=== PATIENT | female | born 1975 | race Caucasian/White ===

== ENCOUNTER 2019-05-08 15:09 | Emergency (ER) | payer MEDICARE, MEDICAID ==
[2019-05-08 15:48] VITALS: BP 96/61
--- NOTE | 2019-05-08 15:58 | UC ---
Throat Pain/Nasal Paulino HPI - HPI Summary HPI Summary: Pt states she saw her primary MD on Friday and was mucinex for nasal congestion. Pt states since then she has been feeling worse. She is coughing, throwing up, ears are hurting. Pt states she needs a note to go back to work. - History of Current Complaint Chief Complaint: UCGeneralIllness Stated Complaint: COUGH Time Seen by Provider: 05/08/19 15:56 Hx Obtained From: Patient Hx Last Menstrual Period: 05/02/19 ?: Yes Onset/Duration: Gradual Onset, Lasting Weeks Severity: Mild Pain Intensity: 0 Associated Signs & Symptoms: Positive: Dysphagia - Allergies/Home Medications Allergies/Adverse Reactions: Allergies Allergy/AdvReac Type Severity Reaction Status Date / Time codeine Allergy Hives Verified 05/08/19 15:50 Penicillins Allergy Hives Verified 05/08/19 15:50 Home Medications: Home Medications Anxiety Medication 05/08/19 [History] QUEtiapine TAB* [Seroquel 100 MG *] 100 mg PO BEDTIME 05/08/19 [History Confirmed 05/08/19] PMH/Surg Hx/FS Hx/Imm Hx Previously Healthy: Yes - Surgical History Surgical History: Yes Surgery Procedure, Year, and Place: tubaligation - Family History Known Family History: Negative: Hypertension - Social History Alcohol Use: None Substance Use Type: None Smoking Status (MU): Heavy Every Day Tobacco Smoker Household Exposure Type: Cigarettes Review of Systems All Other Systems Reviewed And Are Negative: Yes ENT: Positive: Sore Throat, Ear Ache, Nasal Discharge, Sinus Congestion Respiratory: Positive: Cough Gastrointestinal: Positive: Vomiting Is Patient Immunocompromised?: No Physical Exam Triage Information Reviewed: Yes Appearance: Well-Appearing, Well-Nourished, Pain Distress Vital Signs: Initial Vital Signs Temp 98.3 F 05/08/19 15:43 Pulse 77 05/08/19 15:43 Resp 16 05/08/19 15:43 BP 96/61 05/08/19 15:43 Pulse Ox 99 05/08/19 15:43 Vital Signs Reviewed: Yes Eye Exam: Normal ENT: Positive: Pharyngeal erythema - with PND, Nasal congestion, TM bulging - bilateral, Sinus tenderness Dental Exam: Normal Neck exam: Normal Neck: Positive: Supple, Nontender, No Lymphadenopathy Respiratory Exam: Normal Respiratory: Positive: Chest non-tender, Lungs clear, Normal breath sounds Cardiovascular Exam: Normal Cardiovascular: Positive: RRR, No Murmur, Pulses Normal Abdominal Exam: Normal Bowel Sounds: Positive: Present Musculoskeletal Exam: Normal Neurological Exam: Normal Psychological Exam: Normal Skin Exam: Normal Throat Pain/Nasal Course/Dx - Course Course Of Treatment: hx obtained exam performed ,meds reviewed, treaed for sinusitis - Differential Dx/Diagnosis Differential Diagnosis/HQI/PQRI: Otitis Media, Pharyngitis, Sinusitis, URI Provider Diagnosis: Sinusitis Discharge ED - Sign-Out/Discharge Documenting (check all that apply): Patient Departure All imaging exams completed and their final reports reviewed: No Studies - Discharge Plan Condition: Stable Disposition: HOME Prescriptions: Cephalexin CAP* [Keflex CAP*] 500 mg PO BID #20 cap Patient Education Materials: Sinusitis (ED) Forms: *Work Release Referrals: Annelise Rosales NP [Primary Care Provider] - Additional Instructions: 1. take the medication as prescribed. 2. Increase fluids and get plenty of rest. 3. Take a daily claritin to help with the ears and mucus producion 4. Salt water gargles daily - Billing Disposition and Condition Condition: STABLE Disposition: Home
== END 2019-05-08 16:27 | disposition home or self-care (01) ==
LOC: UCCORT 15:09
DX: J32.9 Chronic sinusitis, unspecified (principal); Z88.0 Allergy status to penicillin; F17.210 Nicotine dependence, cigarettes, uncomplicated
CPT/HCPCS: 99202; G0463

== ENCOUNTER 2019-06-14 14:43 | Emergency (ER) | payer MEDICARE, MEDICAID ==
--- OUTSIDE RECORDS SUMMARY | 2019-06-14 14:51 | XMS REPORT | Continuity of Care Document ---
:1975 External Reference #:[id number] Author Name Annelise Rosales PNP-BC, MEDICAL SERVICE TECHNICIAN, [facility] Address [address] [place] [address] Care Team Providers Name Role Phone Annelise Rosales PNP-BC, MEDICAL SERVICE TECHNICIAN, [facility] Care Team Information Trommel Tender - Family Allan Rosas MD - Gastroenterology Care Team Information Trommel Tender [phone] Problems Active Problems Provider Date Bipolar disorder Annelise Rosales PNP-BC, MEDICAL SERVICE TECHNICIAN, [facility] Onset: 01/13/2018 Anxiety state Annelise Rosales PNP-BC, MEDICAL SERVICE TECHNICIAN, [facility] Onset: 01/13/2018 Social History Type Date Description Comments Sex Unknown Cigarette Use Pack Years - 54 Smokeless Tobacco Never Used Smokeless Tobacco ETOH Use Negative For Denies alcohol use Tobacco Use Start: Unknown Light tobacco smoker (10 or fewer cigarettes/day) Recreational Drug Use Never Used Drugs Smoking Status Reviewed: 05/04/19 Light tobacco smoker (10 or fewer cigarettes/day) Allergies, Adverse Reactions, Alerts Active Allergies Reaction Severity Comments Date Penicillins 07/14/2017 Codeine vomitting 03/12/2018 Medications Active Medications SIG Qnty Indications Ordering Date Provider Mucinex 1 tab by mouth 30tabs J06.9 Annelise Rosales, 05/04/2019 600mg Tablets twice a day as PNP-BC, MEDICAL SERVICE TECHNICIAN, ER 12HR needed for [facility] congestion Paroxetine HCL Take One Tablet By 30tabs Annelise Rosales, 02/28/2019 20mg Mouth Every Day PNP-BC, MEDICAL SERVICE TECHNICIAN, Tablets [facility] Quetiapine Fumarate take 1-2 at bedtime 60tabs F31.9 Annelise Rosales, 2018 PNP-BC, MEDICAL SERVICE TECHNICIAN, 50mg Tablets [facility] Immunizations CPT Code Status Date Vaccine Lot # [id number] Given 07/14/2017 Pneumovax Injection [id number] Given 07/14/2017 Tdap injection [id number] Refused 07/14/2017 Influenza Vaccine, Inactivated, Subunit, Adjuvanted , For Intrmusc Vital Signs Date Vital Result Comment 05/04/2019 4:23pm BP Systolic 110 mmHg BP Diastolic 60 mmHg Heart Rate 91 /min Respiratory Rate 18 /min Height 62 inches 5'2" Weight 175.00 lb BMI (Body Mass Index) 32.0 kg/m2 BSA (Body Surface Area) 1.81 m2 [place] body weight in kilograms 50 kg 10/29/2018 1:38pm BP Systolic 126 mmHg BP Diastolic 74 mmHg Body Temperature 98.9 F Heart Rate 70 /min Respiratory Rate 18 /min Height 62 inches 5'2" Weight 165.00 lb BMI (Body Mass Index) 30.2 kg/m2 BSA (Body Surface Area) 1.76 m2 [place] body weight in kilograms 50 kg O2 % BldC Oximetry 98 % Results Description No Information Available Procedures Description No Information Available Medical Devices Description No Information Available Encounters Type Date Location Provider Dx Diagnosis Office Visit 05/04/2019 [facility] Annelise Rosales, F41.9 Anxiety disorder, 4:15p [facility], MEDICAL SERVICE TECHNICIAN, unspecified [facility] G47.00 Insomnia, unspecified J06.9 Acute upper respiratory infection, unspecified Assessments Date Code Description Provider 05/04/2019 F41.9 Anxiety disorder, unspecified Annelise Rosales PNP-BC, MEDICAL SERVICE TECHNICIAN, [facility] 05/04/2019 G47.00 Insomnia, unspecified Annelise Rosales PNP-BC, MEDICAL SERVICE TECHNICIAN, [facility] 05/04/2019 J06.9 Acute upper respiratory infection, Annelise Rosales PNP-BC, MEDICAL SERVICE TECHNICIAN, unspecified [facility] Plan of Treatment Future Appointment(s):01/19/2020 11:00 am - Annelise Rosales PNP-BC, MEDICAL SERVICE TECHNICIAN, [facility] at [facility]05/04/2019 - Annelise Rosales PNP-BC, MEDICAL SERVICE TECHNICIAN, UnqesQ24.9 Anxiety disorder, unspecifiedComments:stableFollow up:PE in spring.G47.00 Insomnia, unspecifiedComments:I'm glad things are better with your bbezcD16.9 Acute upper respiratory infection, unspecifiedNew Medication:Mucinex 600 mg - 1 tab by mouth twice a day as needed for congestionComments:saline nasal spray 3- 4 times a daylots of fluids.sudefedif not improved by next week/end of the weekor you start running a fever let me know. Functional Status Description No Information Available Mental Status Description No Information Available Referrals Description No Information Available
[2019-06-14 16:06] VITALS: BP 108/70
--- NOTE | 2019-06-14 16:44 | UC ---
Nausea/Vomiting/Diarrhea HPI - HPI Summary HPI Summary: Patient is a 43yo female presenting with nausea and vomiting x2 days. States it began Friday night several hours after consuming a chicken sandwich from [employer]. Patient notes one episode of emesis friday night, once yesterday morning, and once this morning. Notes constant nausea. Notes lightheadedness today at work. Notes decreased appetite but states she is still able to drink water and keep it down. Denies hematemesis. Denies diarrhea. Denies abdominal pain. Denies GI history. - History of Current Complaint Chief Complaint: UCGI Stated Complaint: VOMITTING X3 DAYS, CHILLS, LIGHTHEADED Hx Obtained From: Patient Hx Last Menstrual Period: 06/07/19 Onset/Duration: Sudden Onset, Lasting Days Pain Intensity: 8 - Allergies/Home Medications Allergies/Adverse Reactions: Allergies Allergy/AdvReac Type Severity Reaction Status Date / Time codeine Allergy Hives Verified 06/14/19 15:58 Penicillins Allergy Hives Verified 06/14/19 15:58 Home Medications: Home Medications Fluoxetine HCl [Prozac] 20 mg PO DAILY 06/14/19 [History Confirmed 06/14/19] PMH/Surg Hx/FS Hx/Imm Hx Previously Healthy: Yes Psychological History: Bipolar Disorder - Surgical History Surgical History: Yes Surgery Procedure, Year, and Place: tubaligation - Family History Known Family History: Negative: Hypertension - Social History Alcohol Use: None Substance Use Type: None Smoking Status (MU): Heavy Every Day Tobacco Smoker Type: Cigarettes Amount Used/How Often: 1.5 per day Length of Time of Smoking/Using Tobacco: 27 yrs Household Exposure Type: Cigarettes Review of Systems All Other Systems Reviewed And Are Negative: Yes Constitutional: Positive: Negative. Negative: Fever, Chills Respiratory: Positive: Negative Cardiovascular: Positive: Negative Musculoskeletal: Positive: Negative Neurological: Positive: Headache Physical Exam Triage Information Reviewed: Yes Appearance: Well-Appearing, No Pain Distress, Well-Nourished Vital Signs: Initial Vital Signs Temp 98.9 F 06/14/19 16:00 Pulse 72 06/14/19 16:00 Resp 16 06/14/19 16:00 BP 108/70 06/14/19 16:00 Pulse Ox 100 06/14/19 16:00 Lab Results 06/14/19 Range/Units 16:44 POC Urine Color Yellow POC Urine Clarity Clear POC Urine pH 5.5 (5-9) POC Ur Specif Mertens 1.010 (1.010-1.030) POC Urine Protein Negative (Negative) POC Ur Glucose (UA) Negative (Negative) POC Urine Ketones Negative (Negative) POC Urine Blood Negative (Negative) POC Urine Nitrite Negative (Negative) POC Urine Bilirubin Negative (Negative) POC Urine Urobilinogen 0.2 (Negative) POC U Leukocyte Esteras Negative (Negative) Vital Signs Reviewed: Yes Eyes: Positive: Conjunctiva Clear ENT: Positive: Hearing grossly normal, Pharynx normal, Other Neck: Positive: Supple Respiratory Exam: Normal Respiratory: Positive: Lungs clear, Normal breath sounds, No respiratory distress Cardiovascular Exam: Normal Cardiovascular: Positive: RRR Abdominal Exam: Normal Abdomen Description: Positive: Nontender, Soft. Negative: CVA Tenderness (R), CVA Tenderness (L), Distended, Guarding, McBurney's Point Tenderness Bowel Sounds: Positive: Present Neurological: Positive: Alert Psychological: Positive: Other: - flat affect Skin Exam: Normal Naus/Vom/Diarrhea Course/Dx - Course Course Of Treatment: Patient UA and VS normal. No sign of dehydration. No pain distress. Instructed patient to maintain hydration and continue with symptomatic treatment and bland diet. Instructed to follow up with PCP if symptoms persist past 2 days. Instructed to go to the ED if symptoms worsen or she is unable to keep fluids down. Patient voiced understanding and agreed with the treatment plan. - Differential Dx/Diagnosis Provider Diagnosis: Nausea and vomiting Condition At Discharge: Stable Discharge ED - Sign-Out/Discharge Documenting (check all that apply): Patient Departure All imaging exams completed and their final reports reviewed: No Studies - Discharge Plan Condition: Stable Disposition: HOME Patient Education Materials: Acute Nausea and Vomiting (ED), Food Poisoning (ED ) Forms: *Work Release Referrals: Annelise Rosales NP [Primary Care Provider] - If Needed Additional Instructions: As discussed, your nausea and vomiting should resolve within the next day or two. Get plenty of rest and drink plenty of fluids. Eat a bland diet, such as bread, bananas, and rice while symptoms are present. Follow-up with your PCP if your symptoms do not resolve. Go to the emergency room if you develop fever, excessive vomiting, abdominal or chest pain, or are unable to keep fluids down. - Billing Disposition and Condition Condition: STABLE Disposition: Home
== END 2019-06-14 17:12 | disposition home or self-care (01) ==
LOC: UCCORT 14:43
DX: R11.2 Nausea with vomiting, unspecified (principal); F17.210 Nicotine dependence, cigarettes, uncomplicated; F31.9 Bipolar disorder, unspecified; Z88.5 Allergy status to narcotic agent; Z88.0 Allergy status to penicillin; Z79.899 Other long term (current) drug therapy
CPT/HCPCS: 81003; 99211; G0463

== ENCOUNTER 2019-08-06 08:34 | Emergency (ER) | payer MEDICARE, MEDICAID ==
--- NOTE | 2019-08-06 08:53 | UC ---
General HPI - HPI Summary HPI Summary: 43 yo female c/o cough x approx 3 weeks, now with progressive pain bilat lower chest wall, hurts to take deep breath and cough. Cough min productive. No fever /chills. Hx wheezing, does not have albuterol, does have a nebulizer. No rash. No palpitations. No sob perse except with cough. No GI issues. Some sinus congestion. - History of Current Complaint Stated Complaint: RIB PAIN,COUGH Time Seen by Provider: 08/06/19 08:53 Hx Obtained From: Patient Hx Last Menstrual Period: 06/07/19 - Allergy/Home Medications Allergies/Adverse Reactions: Allergies Allergy/AdvReac Type Severity Reaction Status Date / Time codeine Allergy Hives Verified 08/06/19 08:57 Penicillins Allergy Hives Verified 08/06/19 08:57 Home Medications: Home Medications Aspirin/Caffeine [Tammie Back & Body Pain Ex] 2 tab PO BID PRN 08/06/19 [History Confirmed 08/06/19] PMH/Surg Hx/FS Hx/Imm Hx Previously Healthy: Yes - see hpi - Surgical History Surgical History: Yes Surgery Procedure, Year, and Place: tubaligation - Family History Known Family History: Negative: Hypertension - Social History Alcohol Use: None Substance Use Type: None Smoking Status (MU): Heavy Every Day Tobacco Smoker Type: Cigarettes Amount Used/How Often: 1.5 per day Length of Time of Smoking/Using Tobacco: 27 yrs Household Exposure Type: Cigarettes Review of Systems All Other Systems Reviewed And Are Negative: Yes Constitutional: Positive: Negative Skin: Positive: Negative Eyes: Positive: Negative ENT: Positive: Other - see hpi Respiratory: Positive: Cough - see hpi Cardiovascular: Positive: Other - see hpi Gastrointestinal: Positive: Negative Genitourinary: Positive: Negative Motor: Positive: Other - see hpi Neurovascular: Positive: Negative Musculoskeletal: Positive: Negative Neurological: Positive: Negative Psychological: Positive: Negative Is Patient Immunocompromised?: No Physical Exam Triage Information Reviewed: Yes Appearance: Well-Nourished - sitting up, stands ok - uncomfortable with movement and deep breath but NAD Vital Signs Reviewed: Yes Eye Exam: Normal ENT: Positive: Pharyngeal erythema - mild post redness, c/w cough, TM dull Neck exam: Normal Neck: Positive: Supple, Nontender, No Lymphadenopathy Respiratory Exam: Other - + exp wheeze R>L migel mid upper lobe Tender mid lower lat rib areas. No crepitus. No specific point bony tenderness Respiratory: Positive: No respiratory distress, No accessory muscle use Course/Dx - Course Course Of Treatment: Xrays nad, see meditech report. E-rx albuterol neb and inh E-script naproxen Declines work note. Reviewed coa / tx plan. Questions answered as posed to the best of my ability. - Diagnoses Provider Diagnosis: Costochondritis, acute, Wheezing Discharge ED - Sign-Out/Discharge Documenting (check all that apply): Patient Departure All imaging exams completed and their final reports reviewed: Yes - Discharge Plan Condition: Stable Disposition: HOME Prescriptions: Albuterol 2.5MG/3ML (0.083%)* [Ventolin 2.5 MG/3 ML NEB.COY*] 2.5 mg INH Q8H PRN #25 vial PRN Reason: Wheezing Albuterol HFA INHALER* [Ventolin HFA Inhaler*] 1 - 2 puff INH Q4H PRN #1 mdi PRN Reason: Wheezing Naproxen TAB* [Naprosyn 250 mg TAB*] 500 mg PO Q12H PRN #30 tab PRN Reason: Pain - Moderate Patient Education Materials: Costochondritis (ED), Wheezing (ED) Referrals: Annelise Rosales NP [Primary Care Provider] - Additional Instructions: Do not take Tammie aspirin while taking naproxen (prescription). Follow up with your primary care physician for recheck, if possible next week. Please seek medical attention for worse or new problems. Hydrate. - Billing Disposition and Condition Condition: STABLE Disposition: Home
[2019-08-06 08:57] VITALS: BP 104/69
== END 2019-08-06 10:31 | disposition home or self-care (01) ==
LOC: UCCORT 08:34
DX: M94.0 Chondrocostal junction syndrome [Tietze] (principal); R06.2 Wheezing; F17.210 Nicotine dependence, cigarettes, uncomplicated; Z88.0 Allergy status to penicillin; Z88.5 Allergy status to narcotic agent
CPT/HCPCS: 71046; 71110; 99212; G0463

== ENCOUNTER 2019-08-08 11:08 | Emergency (ER) | payer MEDICARE, MEDICAID ==
[2019-08-08 13:15] VITALS: BP 104/62
--- NOTE | 2019-08-08 13:42 | UC ---
Respiratory Complaint HPI - HPI Summary HPI Summary: 43-year-old female presents for persistent chest wall pain. Patient was seen at this facility on 08/06/2019 with reports of a three-week history of cough and chest wall pain with coughing and wheezing. She had negative chest x-ray and rib films at that time. She was diagnosed with costochondritis and recommended conservative treatment including naproxen 500 mg twice a day and albuterol inhaler. States she has taken the naproxen with no improvement in pain. Last dose was yesterday evening. Her cough and wheezing has improved with use of the albuterol inhaler. Patient states that yesterday she slipped on the ice and fell onto her back. States this has aggravated her chest wall pain to the point where she hurts with any type of movement and feels that she is unable to work at this time. Patient is a heavy smoker. Denies fever, chills , palpitations, weakness, dizziness, diaphoresis, nausea, vomiting, calf pain or swelling, weakness, numbness, or tingling of lower extremities, or loss of bowel or bladder control. - History of Current Complaint Chief Complaint: UCTrauma Stated Complaint: COUGH,SORE RIBS Hx Obtained From: Patient Hx Last Menstrual Period: Aug 02 Pain Intensity: 10 - Allergies/Home Medications Allergies/Adverse Reactions: Allergies Allergy/AdvReac Type Severity Reaction Status Date / Time codeine Allergy Hives Verified 08/08/19 13:15 Penicillins Allergy Hives Verified 08/08/19 13:15 PMH/Surg Hx/FS Hx/Imm Hx Psychological History: Depression - Surgical History Surgical History: Yes Surgery Procedure, Year, and Place: tubaligation - Family History Known Family History: Negative: Cardiac Disease, Hypertension, Respiratory Disease - Social History Occupation: Employed Full-time Lives: With Family Alcohol Use: Rare Substance Use Type: None Smoking Status (MU): Heavy Every Day Tobacco Smoker Type: Cigarettes Amount Used/How Often: 1.5 per day Length of Time of Smoking/Using Tobacco: 27 yrs Household Exposure Type: Cigarettes Review of Systems All Other Systems Reviewed And Are Negative: Yes Constitutional: Negative: Fever, Chills Skin: Negative: Rash Eyes: Negative: Drainage, Eye Redness ENT: Negative: Sore Throat, Ear Ache, Nasal Discharge, Sinus Congestion, Sinus Pain/Tenderness Respiratory: Positive: Cough. Negative: Shortness Of Breath Cardiovascular: Positive: Other - See HPI. Negative: Palpitations Gastrointestinal: Negative: Abdominal Pain, Vomiting, Nausea Genitourinary: Positive: Negative Musculoskeletal: Positive: Negative Neurological: Positive: Negative Is Patient Immunocompromised?: No Physical Exam - Summary Physical Exam Summary: GENERAL APPEARANCE: Alert and cooperative obese female who appears to be in no acute distress. EYES: Conjunctiva clear. No drainage. EARS: External auditory canals and tympanic membranes clear, hearing grossly intact. NOSE: No nasal discharge. THROAT: Pharynx normal. No tonsilar inflammation, swelling, exudate, or lesions. Uvula midline. NECK: Neck supple, non-tender without lymphadenopathy. CARDIAC: Normal S1 and S2. No S3, S4 or murmurs. Rhythm is regular. There is no peripheral edema, cyanosis or pallor. Extremities are warm and well perfused. Capillary refill is less than 2 seconds. Peripheral pulses intact. LUNGS: Patient reported severe tenderness with palplation to the entirety of her anterior and posterior thorax. Clear to auscultation without rales, rhonchi , wheezing or diminished breath sounds. ABDOMEN: Positive bowel sounds. Soft, nondistended, nontender. No guarding or rebound. No masses or hepatosplenomegally. MUSKULOSKELETAL: ROM intact to all extremities. No joint erythema or tenderness. Normal muscular development. Normal gait. SKIN: Skin normal color, texture and turgor with no lesions or eruptions. Triage Information Reviewed: Yes Vital Signs: Initial Vital Signs Temp 99.5 F 08/08/19 13:07 Pulse 90 08/08/19 13:07 Resp 16 08/08/19 13:07 BP 104/62 08/08/19 13:07 Pulse Ox 98 08/08/19 13:07 Vital Signs Reviewed: Yes Diagnostics - Radiology No standard instances Radiology Interpretation Completed By: Radiologist Summary of Radiographic Findings: Order Information: RIBS BI W/PA CHEST MIN 4 VWS. HISTORY: worsening chest wall pain, hx fall. COMPARISONS: August 06, 2019 VIEWS: 9, Frontal and oblique views of the left and right hemithorax. FINDINGS: There is no displaced rib fracture or pneumothorax. The visualized lungs are clear. IMPRESSION: NO DISPLACED RIB FRACTURE OR PNEUMOTHORAX. Respiratory Course/Dx - Course Course Of Treatment: 43-year-old female presents for persistent chest wall pain. Patient was seen at this facility on 08/06/2019 with reports of a three-week history of cough and chest wall pain with coughing and wheezing. She had negative chest x-ray and rib films at that time. She was diagnosed with costochondritis and recommended conservative treatment including naproxen 500 mg twice a day and albuterol inhaler. States she has taken the naproxen with no improvement in pain. Last dose was yesterday evening. Her cough and wheezing has improved with use of the albuterol inhaler. Patient states that yesterday she slipped on the ice and fell onto her back. States this has aggravated her chest wall pain to the point where she hurts with any type of movement and feels that she is unable to work at this time. Patient is a heavy smoker. Denies fever, chills , palpitations, weakness, dizziness, diaphoresis, nausea, vomiting, calf pain or swelling, weakness, numbness, or tingling of lower extremities, or loss of bowel or bladder control. Afebrile. Vital signs stable. Patient reported severe pain with even light touch to her bilateral anterior and posterior chest wall. She is in no respiratory distress and had clear bilateral breath sounds. Remainder of exam was unremarkable. Her Wells score for PE is zero which places her at low risk. Chest x-ray and bilateral rib films were unchanged from previous films and showed no acute fracture, pneumothorax, or acute cardiopulmonary pathology. Reviewed results with patient and discussed that her pain is likely musculoskeletal in origin although I cannot fully exclude other causes including PE despite her low risk. Recommending continued use of naproxen with supplementation with acetaminophen 1000 mg Q8h. Will provider with a short term prescription of cyclobenzaprine 10 mg Q8h as needed for severe pain or spasm as well as cold/heat therapy. She is to follow up with her PCP within 7 days for further evaluation. Anticipatory guidelines and warning symptoms requiring immediate medical attention in the ED were reviewed with the patient. Verbalizes understanding and agrees with POC. - Differential Dx/Diagnosis Differential Diagnosis/HQI/PQRI: Bronchitis, Lower Resp Infection, Pneumothorax , Other - chest wall pain, CAD, PE Provider Diagnosis: Chest wall pain Discharge ED - Sign-Out/Discharge Documenting (check all that apply): Patient Departure All imaging exams completed and their final reports reviewed: Yes - Discharge Plan Condition: Stable Disposition: HOME Prescriptions: Cyclobenzaprine HCl 10 mg PO Q8HR PRN #15 tablet PRN Reason: Spasms Patient Education Materials: Chest Wall Pain (ED) Forms: *Work Release Referrals: Annelise Rosales NP [Primary Care Provider] - 7 Days (Follow up within 7 days for recheck of symptoms.) Additional Instructions: The chest and rib x-rays performed in the clinic today were normal. Rest as much as possible. Apply ice, heat, or try alternating ice then heat to the affected area for 15- 20 minutes at least 4 times a day to help with the pain. Continue taking the naproxen 1 tab every 12 hours with food as needed for pain. You may supplement this with acetaminophen (Tylenol) 1000 mg every 8 hours as needed for pain. Take cyclobenzaprine 10 mg 1 tab every 8 hours as needed for severe pain or muscle spasm. This will cause drowsiness so do not take and drive or operated machinery. Follow up with primary care provider within 7 days if symptoms do not improve. Seek immediate medical attention in the emergency room if you have severe pain not managed with pain medication, become weak or dizzy, have difficulty breathing, or have any worsening of symptoms. - Billing Disposition and Condition Condition: STABLE Disposition: Home - Attestation Statements Provider Attestation: I was available for consult. This patient was seen by the [facility]. The patient was not presented to , seen by or examined by -Shawn Miller MD
== END 2019-08-08 14:36 | disposition home or self-care (01) ==
LOC: UCCORT 11:08
DX: R07.89 Other chest pain (principal); R05 Cough; F17.210 Nicotine dependence, cigarettes, uncomplicated; Z88.5 Allergy status to narcotic agent; Z88.0 Allergy status to penicillin
CPT/HCPCS: 71111; 99212; G0463